=== PATIENT | male | born 1995 | race Two or more races ===

== ENCOUNTER 2025-04-03 22:07 | Emergency (ER) | payer OTHER ==
[~2025-04-03] VITALS: Ht 165.1 cm; Wt 97.5 kg
[2025-04-03 22:18] VITALS: BP 146/80; TEMP 98.4
[2025-04-03 23:13] LABS: PLATELET COUNT (AUTO) 334 K/uL (150-450); RED BLOOD CELL COUNT(AUTO) 4.90 MIL/uL (4.5-6.0); RED CELL DISTRIBUTION WIDTH 13.1 % (11.5-15.0); WHITE BLOOD COUNT (AUTO) 7.6 K/uL (4.3-11.0)
[2025-04-03 23:23] LABS: CALCIUM, SERUM 9.3 mg/dL (8.5-10.1); CREATININE 0.8 mg/dL (0.6-1.3); SODIUM SERUM 142.0 mmol/L (136-145); UREA NITROGEN, BLOOD 15.0 mg/dL (7-18)
[2025-04-03 23:25] LABS: INR 1.03 (0.91-1.10)
[2025-04-03 23:49] VITALS: O2SAT 99
== END 2025-04-03 23:50 | disposition home or self-care (01) ==
LOC: ER 22:13
DX: R10.32 Left lower quadrant pain (principal); Z65.3 Problems related to other legal circumstances; Z02.89 Encounter for other administrative examinations
CPT/HCPCS: 36415; 80048-TC; 85025-TC; 85610-TC; 86850-TC